=== PATIENT | male | born 1950 | race Caucasian/White ===

== ENCOUNTER 2017-03-29 07:44 | Day surgery (SDC) | payer OTHER ==
[2017-03-29] VITALS (7 sets, daily range): BP systolic 106–151; BP diastolic 68–86; PULSE 56–65; RESP 16–18; TEMP 97.7–97.9; O2SAT 97–100
[~2017-03-29] VITALS: Ht 172.7 cm; Wt 79.5 kg
[~2017-03-29 07:44] MED LIST: ENAL5 PO; FENO50TA PO; ULTR50TA PO
[2017-03-29] MEDS ORDERED: SODIUM CHLOR 0.9% 1000 ML IV SCH (08:00)
[2017-03-29] MEDS ORDERED: ULTR50TA5 PO (08:19)
[2017-03-29] MEDS ORDERED: ENAL5TAB PO (08:19)
[2017-03-29] MEDS ORDERED: FENO50TA PO (08:19)
[2017-03-29] MEDS ORDERED: IMAT1TAB (08:19)
[2017-03-29 08:47] LABS: AUTOMATED NEUTROPHIL # 2.5 TH/MM3 (1.8-7.7); BASOPHIL % 0.6 % (0.0-2.0); EOSINOPHIL # 0.1 TH/MM3 (0-0.4); EOSINOPHIL % 1.9 % (0.0-4.0); HEMATOCRIT 41.1 % (39.0-51.0); HEMO FLAGS DIFF FINAL; LYMPH % 22.5 % (9.0-44.0); LYMPHOCYTE # 0.9 TH/MM3 (1.0-4.8); MEAN CELL VOLUME 92.9 FL (80.0-100.0); MEAN CORPUSCULAR HGB CONC 33.4 % (32.0-36.0); MONO % 11.2 % (0.0-8.0); NEUT % 63.8 % (16.0-70.0); PLATELET COUNT 263 TH/MM3 (150-450); RED BLOOD COUNT 4.43 MIL/MM3 (4.50-5.90); RED CELL DISTRIBUTION WIDTH 13.6 % (11.6-17.2); WHITE BLOOD COUNT 3.9 TH/MM3 (4.0-11.0)
[2017-03-29 09:01] LABS: APTT (PATIENT) 25.3 SEC (24.3-30.1); PROTHROMBIN TIME - PATIENT 10.6 SEC (9.8-11.6)
[2017-03-29] MEDS ORDERED: MIDAZOLAM HCL 2 MG/2 ML VIAL ONE (09:42)
[2017-03-29] MEDS ORDERED: LIDOCAINE HCL 1% 30 ML VIAL ONE (09:42)
[2017-03-29] MEDS ORDERED: fentaNYL CITRATE 250 MCG/5 ML AMP ONE (09:42)
--- NOTE | 2017-03-29 10:13 | PD.RAD ---
Post CT Procedure Prog Note Pre Procedure Diagnosis: (1) Leukocytosis Post Procedure Diagnosis: (1) Leukocytosis Procedure Date: Mar 29, 2017 Supervising Radiologist: Juan Ramsey Estimated blood loss: <5 ml Plan of Activity Patient to Unit: [facility] Patient Condition: Good Additional Comments: Left iliac bone marrow biopsy See PACS Report for procedural detail/treatment Juan Ramsey MD Mar 29, 2017 10:13
[2017-03-29 11:17] LABS: BONE MARROW PROCESSING COMPLETE; IRON STAIN DONE; JENNER GIEMSA STAIN DONE
--- NOTE | 2017-03-29 12:07 | RADRPT ---
EXAM DATE/TIME: 03/29/2017 09:56 [facility] COMPARISON: CT NEEDLE BIOPSY BONE MARROW, January 17, 2016, 8:26. INDICATIONS : Chronic myeloid leukemia. SEDATION TIME: 30 minutes BIOPSY SITE: Left MEDICATION(S): 1.) 2.5 mg midazolam (Versed) IV 2.) 150 mcg fentanyl (Sublimaze) DEVICE(S): 1.) 11 gauge Bone marrow biopsy needle MEDICAL HISTORY : Leukemia. SURGICAL HISTORY : None. ENCOUNTER: Initial ACUITY: 1 day PAIN SCORE: 0/10 LOCATION: Right A total of one core specimen(s) were obtained and sent to the laboratory for pathologic evaluation. PROCEDURE: 1. CT guided bone marrow biopsy. 2. Conscious sedation with continuous EKG and oximetry monitoring. 3. EKG and oximetry remained stable throughout the procedure. Prior to the procedure informed consent was obtained. Any appropriate prior imaging studies were rev iewed. Using automated exposure control and adjustment of the mA and/or kV according to patient size , radiation dose was kept as low as reasonably achievable to obtain optimal diagnostic quality images . DICOM format image data is available electronically for review and comparison. The site was prepped in a sterile fashion. Full sterile technique was used, including cap, mask, marissa rile gloves and gown and a large sterile sheet. Hand hygiene and 2% chlorhexidine and/or betadine/al cohol prep was utilized per protocol for cutaneous antisepsis. The skin and subcutaneous tissues wer e infiltrated with local anesthetic solution. With CT guidance the previously identified target was localized. Biopsy was performed using the presc ribed needle as above. Following biopsy marrow aspiration was performed with repeat puncture. Adequa te hemostasis was obtained with compression at the puncture site. Follow-up CT scan reveals no hemorrhage. Conscious sedation was performed with the prescribed dosages and duration as above in the presence of an independent trained radiology nurse to assist in the monitoring of the patient. EKG and oximetry remained stable throughout the procedure. The patient tolerated the procedure well and there were no complications. The patient was sent to Radiology Outpatient Unit in stable condition. CONCLUSION: 1. Uncomplicated CT guided bone marrow aspirate. 2. Uncomplicated CT guided bone marrow biopsy. Juan Ramsey MD on March 29, 2017 at 12:06 Board Certified Radiologist. This report was verified electronically.
== END 2017-03-29 10:25 | disposition home or self-care (01) ==
LOC: HRAD 07:44 → HRIP 07:45 → HRAD 10:25
PROVIDERS: ATTEND Internal Medicine
DX: D72.819 Decreased white blood cell count, unspecified (principal); C92.10 Chronic myeloid leukemia, BCR/ABL-positive, not having achieved remission; I12.9 Hypertensive chronic kidney disease with stage 1 through stage 4 chronic kidney disease, or unspecified chronic kidney disease; N18.9 Chronic kidney disease, unspecified; K21.9 Gastro-esophageal reflux disease without esophagitis
CPT/HCPCS: 38221; 77012; 85025; 85097; 85610; 85730; 88305; 88311; 88313; 99152; 99153; C1830; G0364; J2250; J3010; J7030

== ENCOUNTER 2017-09-11 11:17 | Emergency (ER) | payer MEDICARE ==
[~2017-09-11] VITALS: Ht 170.2 cm; Wt 79.5 kg
[~2017-09-11 11:17] MED LIST changes: -ENAL5 PO; +ENAL5TAB PO; +IMAT1TAB; +TRAM50 PO; -ULTR50TA PO
[2017-09-11 11:18] VITALS: BP 161/95; PULSE 67; RESP 18; TEMP 98.4; O2SAT 99
--- NOTE | 2017-09-11 12:25 | RADRPT ---
EXAM DATE/TIME: 09/11/2017 11:55 [facility] COMPARISON: No previous studies available for comparison. INDICATIONS : Right hand laceration, cut with a piece of metal. MEDICAL HISTORY : None. SURGICAL HISTORY : None. ENCOUNTER: Initial ACUITY: 1 day PAIN SCORE: 10/10 LOCATION: Right posterior hand, third MCPJ. FINDINGS: Three view examination of the right hand demonstrates no soft tissue swelling, dislocation, or fractu re. The carpal bones appear intact. The interphalangeal and metacarpophalangeal joints are intact. Bony mineralization is normal. CONCLUSION: No fracture or radiopaque foreign bodies.. Rhys He MD FACR on September 11, 2017 at 12:22 Board Certified Radiologist. This report was verified electronically.
[2017-09-11] MEDS ORDERED: LIDOCAINE HCL 1% 50 ML VIAL INFIL ONE (12:45)
[2017-09-11] MEDS ORDERED: LIDOCAINE HCL 1% 20 ML VIAL INFIL ONE (13:00)
[2017-09-11] MEDS ORDERED: BACT800T5 PO (13:25)
--- NOTE | 2017-09-11 13:35 | PD ---
HPI Chief Complaint: Laceration/Skin Injury Time Seen by Provider: 12:31 Travel History International Travel<30 days: No Contact w/Intl Traveler<30days: No Traveled to known affect area: No History of Present Illness HPI 67-year-old male that presents to the ED for evaluation of laceration to the right hand. Per patient this happened today will closing a metalic door. Per patient he got cut. Injury occurred less than 2 hours ago. He has some bleeding. Denies any numbness, tilling, weakness. Able to move the fingers fully. States that he is up-to-date with his tetanus. Per patient pain is 4 out of 10. Denies any other medical issue at this time. No blood thinner use. PFSH Past Medical History Cancer: Yes (skin ca, Leukemia) Cardiovascular Problems: Yes (HTN) Diabetes: No Endocrine: No Genitourinary: No Hepatitis: No Hiatal Hernia: No Immune Disorder: No Musculoskeletal: Yes (arthritis) Neurologic: No Psychiatric: No Reproductive: No Respiratory: No Immunizations Current: No Thyroid Disease: No Past Surgical History Abdominal Surgery: No AICD: No Cardiac Surgery: No Ear Surgery: No Endocrine Surgery: No Eye Surgery: No Gynecologic Surgery: No Joint Replacement: No Oral Surgery: No Pacemaker: No Thoracic Surgery: No Social History Tobacco Use: No Substance Use: No Allergies-Medications (Allergen,Severity, Reaction): Coded Allergies: No Known Allergies (Unverified Adverse Reaction, Unknown, 09/11/17) Reported Meds & Prescriptions Reported Meds & Active Scripts Active Bactrim DS (Sulfamethoxazole-Trimethoprim) 800-160 Mg Tab 1 Tab PO BID 7 Days Reported Imatinib (Imatinib Mesylate) 100 Mg Tab 400 Ultram (Tramadol HCl) 50 Mg Tab 50 Mg PO Q6H PRN Tricor (Fenofibrate) 145 Mg Tab 145 Mg PO DAILY Takw with food. Enalapril (Enalapril Maleate) 5 Mg Tab 5 Mg PO DAILY Review of Systems Except as stated in HPI: all other systems reviewed are Neg Physical Exam Narrative GENERAL: SKIN: Warm and dry. HEAD: Atraumatic. Normocephalic. EYES: Pupils equal and round. No scleral icterus. No injection or drainage. ENT: No nasal bleeding or discharge. Mucous membranes pink and moist. NECK: Trachea midline. No JVD. CARDIOVASCULAR: Regular rate and rhythm. RESPIRATORY: No accessory muscle use. Clear to auscultation. Breath sounds equal bilaterally. GASTROINTESTINAL: Abdomen soft, non-tender, nondistended. Hepatic and splenic margins not palpable. MUSCULOSKELETAL: Extremities without clubbing, cyanosis, or edema. No obvious deformities. Full range of motion of the upper and lower extremities including the right hand were patient has a superficial laceration which is about 3 cm on the MIP area of the dorsal right hand. Borders were well approximated. Tendon itself appears to be intact. Doesn't appear to be any internal injuries. No foreign body noted. No nerve, vessel, arterial injury noted. Patient does have a small skin tear just proximal to the cod which appears to be very superficial. Good capillary refill of all digits of the right hand. 5 out of 5 strength with all digits of the right hand with both extension and flexion. NEUROLOGICAL: Awake and alert. No obvious cranial nerve deficits. Motor grossly within normal limits. Five out of 5 muscle strength in the arms and legs. Normal speech. PSYCHIATRIC: Appropriate mood and affect; insight and judgment normal. Data Data Last Documented VS Vital Signs Date Time Temp Pulse Resp B/P (MAP) Pulse Ox O2 Delivery O2 Flow Rate FiO2 09/11/17 11:18 98.4 67 18 161/95 (117) 99 Room Air Orders Orders Hand, Complete ([id number]) (09/11/17 ) Wound Care (09/11/17 12:34) Lidocaine 1% Inj (50 Ml) (Xylocaine 1% I (09/11/17 12:45) Lidocaine 1% Inj (Xylocaine 1% Inj) (09/11/17 13:00) Splint Or Brace Apply/Monitor (09/11/17 13:29) [facility] Medical Decision Making Medical Screen Exam Complete: Yes Emergency Medical Condition: Yes Medical Record Reviewed: Yes Interpretation(s) Last Impressions Hand X-Ray 09/11/17 0000 Signed Impressions: Service Date/Time: Monday, September 11, 2017 11:55 - CONCLUSION: No fracture or radiopaque foreign bodies.. Rhys He MD FACR Differential Diagnosis Fracture versus laceration versus abrasion Narrative Course 67-year-old male that presents to the ED for evaluation of laceration to the left hand. Patient was properly examined and was found to have signs and symptoms consistent appears to be superficial laceration. No sign of tendon injury. X-ray was ordered in triage and was negative for acute disease. Patient was reassured. Do recommend suturing. Patient agrees with this. After explaining proceeded to the patient and she agreed to it laceration was repaired as stated in procedure note. Patient was told to get sutures removed in 2 weeks. Given prescription for Bactrim for infection prophylaxis. Splint was placed. Follow with PCP. See ED worsening symptoms. Wound care endorsed. Ice or warm compresses as needed. Procedures Procedure Narrative LACERATION LOCATION: dorsal right hand LENGTH: 4 cm NUMBER OF STITCHES/JOHN: 14 sutures REPAIR: The area of the laceration was prepped with Betadine and sterilely draped. The laceration was infiltrated with 1% Xylocaine. The wound was copiously irrigated and explored without evidence of foreign body, tendon injury or neurovascular injury. The wound was closed using 4-0 Ethilone. This was a 1 layer repair. A sterile dressing was applied. The patient was advised to keep the dressing clean and dry. Patient tolerated the procedure well. Diagnosis Primary Impression: Laceration of hand Qualified Codes: S61.411A - Laceration without foreign body of right hand, initial encounter Patient Instructions: General Instructions Additional Instructions: Wound care daily with soap and water. You can apply bandaid if needed. Neosporyn or OTC antibiotic ointment to area as needed twice a day for at least 2 weeks to help with scarring and prevent infection. Meoderma OTC for scarring if needed. Avoid sun exposure for 2 months as the sun could make scar darker and more noticeable. Get sutures removed in 14 days. See ED if worst. Med/Other Pt SpecificInfo: Prescription(s) given Scripts Sulfamethoxazole-Trimethoprim (Bactrim DS) 800-160 Mg Tab 1 TAB PO BID for Infection for 7 Days, #14 TAB 0 Refills Prov: Samir Nichole MD 09/11/17 Disposition: 01 DISCHARGE HOME Condition: Stable Ryan Ritchie Sep 11, 2017 13:35
== END 2017-09-11 13:57 | disposition home or self-care (01) ==
LOC: NEPK 11:17
DX: S61.411A Laceration without foreign body of right hand, initial encounter (principal); W26.8XXA Contact with other sharp object(s), not elsewhere classified, initial encounter
CPT/HCPCS: 12002; 29130; 73130